=== PATIENT | male | born 1960 | race Two or more races ===

== ENCOUNTER 2017-03-21 16:34 | Emergency (ER) | payer SELFPAY ==
[~2017-03-21] VITALS: Ht 185.4 cm; Wt 104.3 kg
[~2017-03-21 16:34] MED LIST: ACET325T9 PO
[2017-03-21 17:15] VITALS: BP 162/98
--- NOTE | 2017-03-21 17:39 | PHYS DOC ---
Past Medical History Past Medical History: No Pertinent History Past Surgical History: No Surgical History Alcohol Use: Occasionally Drug Use: None Adult General Chief Complaint Chief Complaint: FOOT INJURY PAIN HPI HPI Patient is a 56 year old male who presents with mild left lateral foot pain that began 3 days ago after he stepped on something at work. Patient states the pain is worse on weight-bearing. Describes the pain as throbbing. Review of Systems Review of Systems Constitutional: Denies fever or chills [] : Denies dysuria or hematuria [] Musculoskeletal: mild left lateral foot pain Integument: Denies rash or skin lesions [] Neurologic: Denies headache, focal weakness or sensory changes [] Allergies Allergies Allergies Coded Allergies Type Severity Reaction Last Updated Verified No Known Drug Allergies 08/11/14 No Physical Exam Physical Exam Constitutional: Well developed, well nourished, no acute distress, non-toxic appearance. [] Skin: Warm, dry, no erythema, no rash. [] Back: No tenderness, no CVA tenderness. [] Extremities: Left lateral foot with mild swelling. Tenderness on palpation of the base of the fifth metatarsal of the left foot. Full range of motion to the left foot and toes. +2 left pedal pulse. Cap refill less than 2 seconds the left toes. Sensation intact to the left foot. No pain or tenderness or navicular bone of the left foot. Neurologic: Alert and oriented X 3, normal motor function, normal sensory function, no focal deficits noted. [] Psychologic: Affect normal, judgement normal, mood normal. [] Current Patient Data Vital Signs Vital Signs Date Time Temp Pulse Resp B/P (MAP) Pulse Ox O2 Delivery O2 Flow Rate FiO2 03/21/17 17:15 98.0 82 20 98 Room Air 98.0 EKG EKG [] Radiology/Procedures Radiology/Procedures []Left foot x-rays interpreted by Dr. Tadeo Course & Med Decision Making Course & Med Decision Making Pertinent Labs and Imaging studies reviewed. (See chart for details) Patient is in the ED with complaints of left lateral foot pain that began 3 days ago, no known injury except stepping on something at work. Left foot x- rays interpreted by Dr. Tadeo were negative for any acute findings. Patient was placed in an orthopedic shoe by the ED RN, neurovascular exam is normal, ice elevation encouraged. Naproxen for pain. Follow-up with orthopedic doctor in one week. Dragon Disclaimer Dragon Disclaimer This electronic medical record was generated, in whole or in part, using a voice recognition dictation system. Departure Departure Impression: Primary Impression: Sprain of left foot Disposition: HOME, SELF-CARE Condition: STABLE Referrals: CARLOZ ZACARIAS MD (PCP) HELGA QUILES II, MD Follow-up with the orthopedic doctor the provided doctor in one week if pain continues Patient Instructions: Foot Sprain-Brief Additional Instructions: You were seen for left foot sprain. Ice and elevate the extremity. Wear the orthopedic shoe provided as tolerated. Follow-up with the provided orthopedic doctor in 1-2 weeks if pain continues Scripts Naproxen (NAPROXEN) 500 Mg Tablet.dr 1 TAB PO BID, #60 TAB 2 Refills Prov: MAYCOL AMEZQUITA APRN 03/21/17 Problem Qualifiers Primary Impression: Sprain of left foot Encounter type: initial encounter Qualified Codes: S93.602A - Unspecified sprain of left foot, initial encounter MAYCOL AMEZQUITA [employer] Mar 21, 2017 17:39
[2017-03-21] MEDS ORDERED: NAPR500T8 PO (17:51)
--- NOTE | 2017-03-22 08:23 | RAD ---
Indication: Pain, swelling, and lump laterally. Technique: 3 views of the left foot are submitted for review. No comparison is available. Findings: There is no fracture or dislocation. 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 There is minimal soft tissue swelling greater laterally and in the plantar soft tissues. Impression: Negative for fracture.
== END 2017-03-21 17:57 | disposition home or self-care (01) ==
LOC: ER 16:34
DX: S93.602A Unspecified sprain of left foot, initial encounter (principal); W22.8XXA Striking against or struck by other objects, initial encounter; Y93.89 Activity, other specified; Y92.69 Other specified industrial and construction area as the place of occurrence of the external cause; Y99.8 Other external cause status
CPT/HCPCS: 73630; 99284

== ENCOUNTER 2018-05-17 11:49 | Emergency (ER) | payer OTHER ==
[~2018-05-17] VITALS: Ht 190.5 cm; Wt 104.3 kg
[~2018-05-17 11:49] MED LIST changes: +NAPR500T8 PO
[2018-05-17 12:02] VITALS: BP 149/100
[2018-05-17] MEDS ORDERED: KETOROLAC 60 MG/2 ML INJ. IM ONE (12:15)
[2018-05-17] MEDS ORDERED: HYDROcodone/APAP 5/325MG 1 TAB TABLET PO ONE (12:15)
[2018-05-17] MEDS ORDERED: HYDR-971 PO (12:20)
--- NOTE | 2018-05-17 12:38 | PHYS DOC ---
Past Medical History Past Medical History: No Pertinent History Past Surgical History: No Surgical History Alcohol Use: Occasionally Drug Use: None Adult General Chief Complaint Chief Complaint: RIB PAIN HPI HPI Patient is a 57 year old male who is presenting with right lower rib and right upper abdominal pain. 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 And again it did start after a b blunt trauma as noted above Review of Systems Review of Systems Constitutional: Denies fever or chills [] Eyes: Denies change in visual acuity, redness, or eye pain [] HENT: Denies nasal congestion or sore throat [] Respiratory: Denies cough or shortness of breath [] Musculoskeletal: [] Integument: Denies rash or skin lesions [] Neurologic: Denies headache, focal weakness or sensory changes [] All other systems were reviewed and found to be within normal limits, except as documented in this note. Current Medications Current Medications Current Medications Medications (Trade) Dose Ordered Sig/Krissy Start Time Stop Time Status Last Admin Dose Admin Acetaminophen/ Hydrocodone Bitart (Lortab 5/325) 2 tab 1X ONCE 05/17/18 12:15 05/17/18 12:16 DC 05/17/18 12:30 2 TAB Ketorolac Tromethamine (Toradol Im) 30 mg 1X ONCE 05/17/18 12:15 05/17/18 12:16 DC 05/17/18 12:30 30 MG Allergies Allergies Allergies Coded Allergies Type Severity Reaction Last Updated Verified No Known Drug Allergies 08/11/14 No Physical Exam Physical Exam Constitutional: Well developed, well nourished, no acute distress, non-toxic appearance. [] HENT: Normocephalic, atraumatic, bilateral external ears normal, oropharynx moist, no oral exudates, nose normal. [] Eyes: PERRLA, EOMI, conjunctiva normal, no discharge. [] Neck: Normal range of motion, no tenderness, supple, no stridor. [] Cardiovascular:Heart rate regular rhythm, no murmur [] Lungs & Thorax: Bilateral breath sounds clear to auscultation []There is chest wall tenderness palpation on the inferior costal margin the right chest no obvious trauma was seen. There is also some right upper quadrant tenderness that reproduces his pain. Abdomen: Bowel sounds normal, soft, , no masses, no pulsatile masses. [] Skin: Warm, dry, no erythema, no rash. [] Back: No tenderness, no CVA tenderness. [] Extremities: No tenderness, no cyanosis, no clubbing, ROM intact, no edema. [] Neurologic: Alert and oriented X 3, normal motor function, normal sensory function, no focal deficits noted. [] Psychologic: Affect normal, judgement normal, mood normal. [] Current Patient Data Vital Signs Vital Signs Date Time Temp Pulse Resp B/P (MAP) Pulse Ox O2 Delivery O2 Flow Rate FiO2 05/17/18 12:02 97.2 89 20 149/100 (116) 97 Room Air 97.2 EKG EKG [] Radiology/Procedures Radiology/Procedures [] Impressions: Chest x-ray interpreted by me shows poor inspiration but no pneumothorax no rib injury fairly normal overall Course & Med Decision Making Course & Med Decision Making Pertinent Labs and Imaging studies reviewed. (See chart for details) []57-year-old male with no past medical history presenting with a blunt trauma 3 weeks ago with continued pain over the right lower chest wall and right upper quadrant area. It is likely musculoskeletal in nature. X-ray showed no definite rib fracture. I did give some thought to a possible encapsulated liver hematoma etc. I discussed with him about the lab work and a CT scan today to rule out anything like that L. He said he has to leave because he has to get a ride and he has things to do and he cannot stay for that testing. Did talk with him about the fact that there is a low chance of this and that even if it was present it would likely be observed due to timeframe. He preferred to take some pain medication and see how he feels. rx norco given, precautionson this med were reviewed no driving or worknig while on it. Patient aware of the elevation in blood pressure and need for follow-up within 1 month Dragon Disclaimer Dragon Disclaimer This electronic medical record was generated, in whole or in part, using a voice recognition dictation system. Departure Departure Impression: Primary Impression: Rib pain Additional Impression: Elevated blood pressure reading Disposition: 01 HOME, SELF-CARE Condition: STABLE Patient Instructions: Rib Contusion Scripts Hydrocodone/Apap 5-325 (NORCO 5-325 TABLET) 1 Each Tablet 1-2 EACH PO PRN Q6HRS PRN for PAIN, #15 as needed for pain Prov: WES JACOBSEN MD 05/17/18 Problem Qualifiers WES JACOBSEN MD May 17, 2018 12:38
--- NOTE | 2018-05-17 13:26 | RAD ---
Chest, PA and Lateral: Technique: PA and lateral views of the chest were obtained. History: Chest pain. Comparison: 04/24/2014. Findings: The heart and pulmonary vasculature appear within normal limits. Mild prominent appearing bilateral interstitial lung markings similar to prior exam.. The pleural margins are clear. Impression: No acute chest process is seen. Electronically signed by: Vance Larsen MD (05/17/2018 1:22 PM) [id number]
== END 2018-05-17 12:34 | disposition home or self-care (01) ==
LOC: ER 11:49
DX: R07.81 Pleurodynia (principal); R10.11 Right upper quadrant pain; R03.0 Elevated blood-pressure reading, without diagnosis of hypertension
CPT/HCPCS: 71046; 96372; 99284; J1885

== ENCOUNTER 2018-10-15 11:09 | Emergency (ER) | payer OTHER ==
[~2018-10-15] VITALS: Ht 188 cm; Wt 113.9 kg
[~2018-10-15 11:09] MED LIST changes: +HYDR-3164 PO
[2018-10-15 11:10] VITALS: BP 145/86
[2018-10-15] MEDS ORDERED: IBUPROFEN 400 MG TABLET. PO ONE (11:30)
--- NOTE | 2018-10-15 11:30 | PHYS DOC ---
Past Medical History Past Medical History: No Pertinent History Past Surgical History: Other Additional Past Surgical Histo: wart on right hand Alcohol Use: Occasionally Drug Use: None Adult General Chief Complaint Chief Complaint: HAND PROBLEM HPI HPI Patient is a 58 year old male with 1 month or longer right hand pain he has a wart they are freezing off slowly at the clinic pain is increasing no fever it did bleed 2 weeks ago it stopped. He would like a note for work right hand. Current Medications Current Medications Current Medications Medications (Trade) Dose Ordered Sig/Krissy Start Time Stop Time Status Last Admin Dose Admin Ibuprofen (Motrin) 400 mg 1X ONCE 10/15/18 11:30 10/15/18 11:31 Allergies Allergies Allergies Coded Allergies Type Severity Reaction Last Updated Verified No Known Drug Allergies 08/11/14 No Physical Exam Physical Exam Constitutional: Well developed, well nourished, no acute distress, non-toxic appearance. [] HENT: Normocephalic, atraumatic, bilateral external ears normal, oropharynx moist, no oral exudates, nose normal. [] Eyes: PERRLA, EOMI, conjunctiva normal, no discharge. [] Pulmonary: Normal respiratory effort no increased work of breathing no obvious chest wall trauma Abdomen: Bowel sounds normal, soft, no tenderness, no masses, no pulsatile masses. [] Skin: See below Back: No tenderness, no CVA tenderness. [] Extremitie there is a wart that appears to be slowly healing on the dorsum of the hand no cellulitis noted pulse present Neurologic: Alert and oriented X 3, normal motor function, normal sensory function, no focal deficits noted. [] Psychologic: Affect normal, judgement normal, mood normal. [] Current Patient Data Vital Signs Vital Signs Date Time Temp Pulse Resp B/P (MAP) Pulse Ox O2 Delivery O2 Flow Rate FiO2 10/15/18 11:10 97.7 78 16 145/86 (105) 95 Room Air 97.7 EKG EKG [] Radiology/Procedures Radiology/Procedures [] Course & Med Decision Making Course & Med Decision Making Pertinent Labs and Imaging studies reviewed. (See chart for details) Dorsum of the hand wart. Patient tells me was artery biopsy he is having it treated I suspect it is slowly dying and causing some discomfort no signs of infection Motrin given the area was wrapped with a dry Kerlix patient was reassured Dragon Disclaimer Dragon Disclaimer This electronic medical record was generated, in whole or in part, using a voice recognition dictation system. Departure Departure Impression: Primary Impression: Praveena Additional Impression: Elevated blood pressure reading Disposition: HOME, SELF-CARE Condition: STABLE Patient Instructions: Feroz Additional Instructions: get bp checked one month Problem Qualifiers WES JACOBSEN MD Oct 15, 2018 11:30
== END 2018-10-15 11:48 | disposition home or self-care (01) ==
LOC: ER 11:09
DX: R03.0 Elevated blood-pressure reading, without diagnosis of hypertension (principal); B07.8 Other viral warts; M79.641 Pain in right hand
CPT/HCPCS: 99282

== ENCOUNTER 2019-09-20 09:46 | Emergency (ER) | payer OTHER ==
[~2019-09-20] VITALS: Ht 188 cm; Wt 115.0 kg
[2019-09-20 10:08] VITALS: BP 134/87
[2019-09-20] MEDS ORDERED: IBUPROFEN 200 MG TABLET. PO ONE (10:45)
[2019-09-20] MEDS ORDERED: ACETAMINOPHEN 500 MG TABLET PO ONE (10:45)
[2019-09-20] MEDS ORDERED: BENZONATATE 100 MG CAPSULE. PO ONE (10:45)
--- NOTE | 2019-09-20 11:15 | RAD ---
Chest, PA and Lateral: Technique: PA and lateral views of the chest were obtained. History: Cough, weakness. Comparison: 05/17/2018. Findings: The heart and pulmonary vasculature appear within normal limits. The lungs are clear. The pleural margins are clear. Impression: No acute chest process is seen. Electronically signed by: Vance Larsen MD (09/20/2019 11:13 AM) [id number]
--- NOTE | 2019-09-20 11:21 | PHYS DOC ---
Past Medical History Past Medical History: Hypertension (MAYCOL AMEZQUITA APRN) Past Surgical History: Other Additional Past Surgical Histo: wart on right hand (MAYCOL AMEZQUITA APRN) Smoking Status: Never Smoker Alcohol Use: Occasionally Drug Use: None (MAYCOL AMEZQUITA APRN) Adult General Chief Complaint Chief Complaint: FLU SYMPTOM HPI HPI Patient is a 58 year old female with history of hypertension who presents to the ED today with sore throat, cough and body aches and subjective fevers, symptoms began on Thursday which is 4 days ago. Patient reports being around a family member who was diagnosed with influenza B (MAYCOL AMEZQUITA APRN) Review of Systems Review of Systems Constitutional: Reports body aches, fevers Eyes: Denies change in visual acuity, redness, or eye pain [] HENT: Reports sore throat Denies nasal congestion Respiratory: Reports cough denies shortness of breath [] Cardiovascular: No additional information not addressed in HPI [] GI: Denies abdominal pain, nausea, vomiting, bloody stools or diarrhea [] : Denies dysuria or hematuria [] Musculoskeletal: Denies back pain or joint pain [] Integument: Denies rash or skin lesions [] Neurologic: Denies headache, focal weakness or sensory changes [] All other systems were reviewed and found to be within normal limits, except as documented in this note. (MAYCOL AMEZQUITA APRN) Current Medications Current Medications Current Medications Medications (Trade) Dose Ordered Sig/Krissy Start Time Stop Time Status Last Admin Dose Admin Acetaminophen (Tylenol) 1,000 mg 1X ONCE 09/20/19 10:45 09/20/19 10:46 DC 09/20/19 11:01 1,000 MG Benzonatate (Tessalon Perle) 100 mg 1X ONCE 09/20/19 10:45 09/20/19 10:46 DC 09/20/19 11:00 100 MG Ibuprofen (Motrin) 600 mg 1X ONCE 09/20/19 10:45 09/20/19 10:46 DC 09/20/19 11:01 600 MG (PELON MC DO) Allergies Allergies Allergies Coded Allergies Type Severity Reaction Last Updated Verified No Known Drug Allergies 08/11/14 No (PELON MC DO) Physical Exam Physical Exam Constitutional: Well developed, well nourished, no acute distress, non-toxic a ppearance. [] HENT: Normocephalic, atraumatic, bilateral external ears normal, oropharynx moist, no oral exudates, nose normal. [] Eyes: PERRLA, EOMI, conjunctiva normal, no discharge. [] Neck: Normal range of motion, no tenderness, supple, no stridor. [] Cardiovascular:Heart rate regular rhythm, no murmur [] Lungs & Thorax: Bilateral breath sounds clear to auscultation [] Abdomen: Bowel sounds normal, soft, no tenderness, no masses, no pulsatile masses. [] Skin: Warm, dry, no erythema, no rash. [] Back: No tenderness, no CVA tenderness. [] Extremities: No tenderness, no cyanosis, no clubbing, ROM intact, no edema. [] Neurologic: Alert and oriented X 3, normal motor function, normal sensory function, no focal deficits noted. [] Psychologic: Affect normal, judgement normal, mood normal. [] (MAYCOL AMEZQUITA APRN) Current Patient Data Vital Signs Vital Signs Date Time Temp Pulse Resp B/P (MAP) Pulse Ox O2 Delivery O2 Flow Rate FiO2 09/20/19 10:08 100.6 105 20 134/87 (103) 94 Room Air 100.6 (PELON MC DO) Lab Values Laboratory Tests Test 09/20/19 10:29 Influenza Type A Antigen Positive (NEGATIVE) Influenza Type B Antigen Negative (NEGATIVE) (PELON MC DO) Lab Values Laboratory Tests Test 09/20/19 10:29 Influenza Type A Antigen Positive (NEGATIVE) Influenza Type B Antigen Negative (NEGATIVE) (MAYCOL AMEZQUITA APRN) EKG EKG [] (MAYCOL AMEZQUITA APRN) Radiology/Procedures Radiology/Procedures []PROCEDURE: CHEST PA & LATERAL Chest, PA and Lateral: Technique: PA and lateral views of the chest were obtained. History: Cough, weakness. Comparison: 05/17/2018. Findings: The heart and pulmonary vasculature appear within normal limits. The lungs are clear. The pleural margins are clear. Impression: No acute chest process is seen. Electronically signed by: Vance Larsen MD (09/20/2019 11:13 AM) [id number] DICTATED and SIGNED BY: VANCE LARSEN MD DATE: 09/20/19 1113 (MAYCOL AMEZQUITA APRN) Course & Med Decision Making Course & Med Decision Making Pertinent Labs and Imaging studies reviewed. (See chart for details) This is a 58-year-old male patient presenting to the ED today with fever and sore throat and body aches and a cough for 4 days. Has been around somebody with influenza B. Temperature on arrival is 100.6. Given Tylenol and Motrin. Chest x-ray is negative as interpreted by radiologist. Positive for influenza A. Supportive care measures recommended. F/u with PCP in 1 week (MAYCOL AMEZQUITA APRN) Dragon Disclaimer Dragon Disclaimer This electronic medical record was generated, in whole or in part, using a voice recognition dictation system. (MAYCOL AMEZQUITA APRN) Departure Departure Impression: Primary Impression: Fever Additional Impressions: Influenza A Cough Disposition: HOME, SELF-CARE Condition: STABLE Referrals: CARLOZ ZACARIAS MD (PCP) follow up in 1 week Patient Instructions: Cough, Adult, [id number], Fever, Adult, Influenza A (H1N1) Additional Instructions: You tested positive for influenza, this is a viral illness, it will run its own course. Please take Tylenol every 4 hours and Motrin every 6 hours. Please rest, push fluids, maintain good hygiene. Follow-up with your doctor in 1-2 weeks. Attending Signature Attending Signature I have reviewed the PA/SOAP TENDER's note and plan of care. I was available for consultation as needed during the patient's visit in the emergency department. I agree with the clinical impression, plan, and disposition. (PELON MC DO) Problem Qualifiers Primary Impression: Fever Fever type: unspecified Qualified Codes: R50.9 - Fever, unspecified MAYCOL AMEZQUITA APRN Sep 20, 2019 11:21 PELON MC DO Sep 21, 2019 21:35
[2019-09-20 11:24] LABS: INFLUENZA A PATIENT POSITIVE (NEGATIVE)
[2019-09-20 11:26] LABS: INFLUENZA B PATIENT NEGATIVE (NEGATIVE)
== END 2019-09-20 11:37 | disposition home or self-care (01) ==
LOC: ER 09:46
DX: J10.1 Influenza due to other identified influenza virus with other respiratory manifestations (principal); R05 Cough; I10 Essential (primary) hypertension; Z98.890 Other specified postprocedural states; Z79.899 Other long term (current) drug therapy
CPT/HCPCS: 71046; 87804; 99284

== ENCOUNTER 2020-08-09 10:32 | Emergency (ER) | payer OTHER ==
[~2020-08-09] VITALS: Ht 188 cm; Wt 111.8 kg
[2020-08-09 10:45] VITALS: BP 133/88
[2020-08-09] MEDS ORDERED: HYDR-2759 PO (11:20)
[2020-08-09] MEDS ORDERED: CYCL5TAB PO (11:20)
--- NOTE | 2020-08-09 11:20 | ED.ADGEN ---
Past Medical History Past Medical History: GERD, Hypertension, Other Additional Past Medical Histor: LIVER PROBLEMS Past Surgical History: No Surgical History, Other Additional Past Surgical Histo: wart on right hand Smoking Status: Never Smoker Alcohol Use: Sober Drug Use: None General Adult EDM: Chief Complaint: BACK PAIN - NO INJURY HPI: HPI: Patient is a 59 male who arrives ambulatory to the emergency department complaining of right-sided low back pain. Patient reports he was changing a tire on Thursday when his shoe string was caught in between the rim of the tire and when he leaned back he noticed that she screen was caught on the tire and he lost his balance and fell back and landed on the right side of his back. Patient reports since that time he has had episodes where he spasms in the lumbar musculature at the right side of his back. Patient states when he leans to his right in the seated position his pain is alleviated however he has significant pain whenever he tries to walk or move. The patient denies any midline back pain. He further denies any saddle anesthesia or change in his bowel/bladder habits. He further denies any lower extremity weakness or radiation of his pain. He is awake, alert and uncomfortable.. Review of Systems: Review of Systems: Constitutional: Denies fever or chills. [] Eyes: Denies change in visual acuity. [] HENT: Denies nasal congestion or sore throat. [] Respiratory: Denies cough or shortness of breath. [] Cardiovascular: Denies chest pain or edema. [] GI: Denies abdominal pain, nausea, vomiting, bloody stools or diarrhea. [] : Denies dysuria. [] Musculoskeletal: Reports lumbar back pain. Denies joint pain. [] Integument: Denies rash. [] Neurologic: Denies headache, focal weakness or sensory changes. [] Endocrine: Denies polyuria or polydipsia. [] Lymphatic: Denies swollen glands. [] Psychiatric: Denies depression or anxiety. [] Family History: Family History: Noncontributory Allergies: Allergies: Allergies Coded Allergies Type Severity Reaction Last Updated Verified No Known Drug Allergies 08/11/14 No Physical Exam: PE: Constitutional: Well developed, well nourished, no acute distress, non-toxic appearance. [] HENT: Normocephalic, atraumatic, bilateral external ears normal, oropharynx moist, no oral exudates, nose normal. [] Eyes: PERRLA, EOMI, conjunctiva normal, no discharge. [] Neck: Normal range of motion, no tenderness, supple, no stridor. [] Cardiovascular:Heart rate regular rhythm, no murmur [] Lungs & Thorax: Bilateral breath sounds clear to auscultation [] Abdomen: Bowel sounds normal, soft, no tenderness, no masses, no pulsatile masses. [] Skin: Warm, dry, no erythema, no rash. [] Back: Patient has tenderness palpation in the region of the lumbar musculature at the right side of his back. He also appears to tenderness at the sciatic notch. There is no midline tenderness present. There is no CVA tenderness present. Extremities: No tenderness, no cyanosis, no clubbing, ROM intact, no edema. [] Neurologic: Alert and oriented X 3, normal motor function, normal sensory function, no focal deficits noted. [] Psychologic: Affect normal, judgement normal, mood normal. [] Current Patient Data: Vital Signs: Vital Signs Date Time Temp Pulse Resp B/P (MAP) Pulse Ox O2 Delivery O2 Flow Rate FiO2 08/09/20 10:45 98.1 76 20 133/88 (103) 97 Room Air 98.1 EKG: EKG: [] Heart Score: Risk Factors: Risk Factors: DM, Current or recent (<one month) smoker, HTN, HLP, family history of CAD, obesity. Risk Scores: Score 0 - 3: 2.5% MACE over next 6 weeks - Discharge Home Score 4 - 6: 20.3% MACE over next 6 weeks - Admit for Clinical Observation Score 7 - 10: 72.7% MACE over next 6 weeks - Early Invasive Strategies Radiology/Procedures: Radiology/Procedures: [] Course & Med Decision Making: Course & Med Decision Making Pertinent Labs and Imaging studies reviewed. (See chart for details) [] Dragon Disclaimer: Emily Disclaimer: This electronic medical record was generated, in whole or in part, using a voice recognition dictation system. Departure Departure Impression: Primary Impression: Lumbar contusion Disposition: 01 DC HOME SELF CARE/HOMELESS Condition: STABLE Referrals: CARLOZ ZACARIAS MD (PCP) Patient Instructions: Back Pain, Adult, Contusion Scripts Cyclobenzaprine Hcl (CYCLOBENZAPRINE HCL) 5 Mg Tablet 1 TAB PO TID for 7 Days, #21 TAB Prov: JSOEPH MARIN DO 08/09/20 Hydrocodone/Acetaminophen (Hydrocodone-Acetamin 5-325 mg) 1 Each Tablet 1 EACH PO PRN Q6HRS PRN for PAIN for 3 Days, #12 TAB Prov: JOSEPH MARIN DO 08/09/20 JOSEPH MARIN DO Aug 09, 2020 11:20
== END 2020-08-09 11:28 | disposition home or self-care (01) ==
LOC: ER 10:32
DX: S30.0XXA Contusion of lower back and pelvis, initial encounter (principal); K21.9 Gastro-esophageal reflux disease without esophagitis; I10 Essential (primary) hypertension; Z98.890 Other specified postprocedural states; W18.39XA Other fall on same level, initial encounter; Y93.89 Activity, other specified; Y92.89 Other specified places as the place of occurrence of the external cause; Y99.8 Other external cause status
CPT/HCPCS: 99284

== ENCOUNTER 2020-12-06 18:30 | Emergency (ER) | payer OTHER ==
[~2020-12-06] VITALS: Ht 188 cm; Wt 115.9 kg
[~2020-12-06 18:30] MED LIST changes: +CYCL5TAB PO; +HYDR-2759 PO
[2020-12-06 19:37] LABS: BASO % 1 % (0-3); EOS # 0.2 x10^3/uL (0.0-0.7); EOS % 5 % (0-3); LYMPH # 1.1 x10^3/uL (1.0-4.8); LYMPH % 30 % (24-48); MEAN CORPUSCULAR HEMOGLOBIN 29 pg (25-35); MEAN CORPUSCULAR HGB CONC 34 g/dL (31-37); MEAN CORPUSCULAR VOLUME 84 fL (79-100); MONO # 0.5 x10^3/uL (0.0-1.1); MONO % 13 % (0-9); NEUT # 1.9 x10^3/uL (1.8-7.7); NEUT % 51 % (31-73); PLATELET COUNT 146 x10^3/uL (140-400); RED BLOOD COUNT 5.22 x10^6/uL (4.30-5.70); RED CELL DISTRIBUTION WIDTH 14.1 % (11.5-14.5); WHITE BLOOD COUNT 3.8 x10^3/uL (4.0-11.0)
[2020-12-06 19:40] LABS: BILIRUBIN,URINE SMALL (NEG); CLARITY,URINE CLEAR; COLOR,URINE AMBER; NITRITE,URINE NEGATIVE (NEG); PROTEIN,URINE NEGATIVE (NEG-TRACE)
--- NOTE | 2020-12-06 19:44 | PHYS DOC ---
Past Medical History Past Medical History: GERD, Hypertension, Other Additional Past Medical Histor: LIVER PROBLEMS Past Surgical History: Other Additional Past Surgical Histo: wart on right hand Smoking Status: Never Smoker Alcohol Use: Sober Drug Use: None General Adult EDM: Chief Complaint: MULTIPLE COMPLAINTS HPI: HPI: Patient is a 60 year old male with history of hypertension who presents today with multiple complaints. Patient states he got Pfizer second dose Covid vaccine this week on Thursday, he states on Thursday he developed a fever. He states he feels constipated. Last bowel movement was today. He states he has poor appetite and fatigue. He states he typically eats like a horse but has not had a chance to eat much food since he got Covid vaccine Review of Systems: Review of Systems: Constitutional: Reports fever. Reports fatigue. Denies fever or chills. [] Eyes: Denies change in visual acuity. [] HENT: Denies nasal congestion or sore throat. [] Respiratory: Denies cough or shortness of breath. [] Cardiovascular: Denies chest pain or edema. [] GI: Reports constipation. Denies abdominal pain, nausea, vomiting, bloody stools or diarrhea. [] : Denies dysuria. [] Musculoskeletal: Denies back pain or joint pain. [] Integument: Denies rash. [] Neurologic: Denies headache, focal weakness or sensory changes. [] Psychiatric: Denies depression or anxiety. [] Heart Score: C/O Chest Pain: N/A Risk Factors: Risk Factors: DM, Current or recent (<one month) smoker, HTN, HLP, family hist ory of CAD, obesity. Risk Scores: Score 0 - 3: 2.5% MACE over next 6 weeks - Discharge Home Score 4 - 6: 20.3% MACE over next 6 weeks - Admit for Clinical Observation Score 7 - 10: 72.7% MACE over next 6 weeks - Early Invasive Strategies Allergies: Allergies: Allergies Coded Allergies Type Severity Reaction Last Updated Verified No Known Drug Allergies 08/11/14 No Physical Exam: PE: Constitutional: Well developed, well nourished, no acute distress, non-toxic appearance. [] HENT: Normocephalic, atraumatic, bilateral external ears normal, oropharynx moist, no oral exudates, nose normal. [] Eyes: PERRLA, EOMI, conjunctiva normal, no discharge. [] Neck: Normal range of motion, no tenderness, supple, no stridor. [] Cardiovascular:Heart rate regular rhythm, no murmur [] Lungs & Thorax: Bilateral breath sounds clear to auscultation [] Abdomen: Bowel sounds normal, soft, no tenderness, no masses, no pulsatile masses. [] Skin: Warm, dry, no erythema, no rash. [] Back: No tenderness, no CVA tenderness. [] Extremities: No tenderness, no cyanosis, no clubbing, ROM intact, no edema. [] Neurologic: Alert and oriented X 3, normal motor function, normal sensory function, no focal deficits noted. [] Psychologic: Affect normal, judgement normal, mood normal. [] Current Patient Data: Labs: Laboratory Tests Test 12/06/20 19:33 White Blood Count 3.8 x10^3/uL (4.0-11.0) L Red Blood Count 5.22 x10^6/uL (4.30-5.70) Hemoglobin 15.0 g/dL (13.0-17.5) Hematocrit 44.0 % (39.0-53.0) Mean Corpuscular Volume 84 fL (79-100) Mean Corpuscular Hemoglobin 29 pg (25-35) Mean Corpuscular Hemoglobin Concent 34 g/dL (31-37) Red Cell Distribution Width 14.1 % (11.5-14.5) Platelet Count 146 x10^3/uL (140-400) Neutrophils (%) (Auto) 51 % (31-73) Lymphocytes (%) (Auto) 30 % (24-48) Monocytes (%) (Auto) 13 % (0-9) H Eosinophils (%) (Auto) 5 % (0-3) H Basophils (%) (Auto) 1 % (0-3) Neutrophils # (Auto) 1.9 x10^3/uL (1.8-7.7) Lymphocytes # (Auto) 1.1 x10^3/uL (1.0-4.8) Monocytes # (Auto) 0.5 x10^3/uL (0.0-1.1) Eosinophils # (Auto) 0.2 x10^3/uL (0.0-0.7) Basophils # (Auto) 0.0 x10^3/uL (0.0-0.2) Laboratory Tests 12/06/20 19:33 Vital Signs: Vital Signs Date Time Temp Pulse Resp B/P (MAP) Pulse Ox O2 Delivery O2 Flow Rate FiO2 12/06/20 18:57 97.6 90 20 135/79 (97) 98 Room Air 97.6 EKG: EK interpreted by Dr. Cooley sinus rhythm heart rate 89 no STEMI [] Radiology/Procedures: Radiology/Procedures: []PROCEDURE: ACUTE ABDOMEN SERIES EXAMINATION: XR ABDOMEN COMP ACUTE CLINICAL HISTORY: Constipation, fever EXAM DATE/TIME: 12/06/2020 7:45 PM COMPARISON: Chest radiographs 09/20/2019, acute abdominal series 05/03/2014 FINDINGS: Lines, Tubes, and Devices: None. Cardiomediastinal Silhouette: Normal heart size. Lungs and Pleura: Mild left basilar subsegmental atelectasis and/or scarring. No definite pleural effusion. No pneumothorax. Bones and Soft Tissues: Thoracolumbar degenerative changes. Abdomen: Nonspecific bowel gas pattern with overall paucity of visualized bowel gas. No evidence of excessive colonic stool retention. No evidence of pneumoperitoneum. No pathologic abdominal calcifications visualized. IMPRESSION: Nonspecific bowel gas pattern is described without evidence of excessive colonic stool retention. Mild left basilar subsegmental atelectasis and/or scarring, similar to prior study. Electronically signed by: Jose D Silva DO (12/06/2020 7:53 PM) [facility] DICTATED and SIGNED BY: JOSE D SILVA DO DATE: 12/06/20 [id number] 0 Course & Med Decision Making: Course & Med Decision Making Pertinent Labs and Imaging studies reviewed. (See chart for details) This is a 60-year-old male patient presenting to the ED today complaining of fever, body aches, constipation, symptoms began after having Pfizer second dose Covid vaccine on Thursday this week. Patient is afebrile in the ED, EKG is negative, CBC with a WBC of 3.8, CMP with bilirubin of 2.0, AST of 39, ALT of 82, patient has no abdominal pain. Acute abdominal series is negative for any acute findings Discharge home. Follow-up with PCP in 1 week. Supportive care measures recommended Emily Disclaimer: Emily Disclaimer: This electronic medical record was generated, in whole or in part, using a voice recognition dictation system. Departure Departure Impression: Primary Impression: Fever Qualified Codes: R50.9 - Fever, unspecified Disposition: 01 HOME / SELF CARE / HOMELESS Condition: STABLE Referrals: CARLOZ ZACARIAS MD (PCP) Follow-up next week Patient Instructions: Fever, Adult, [id number] Additional Instructions: You were evaluated in the emergency room, you could be suffering from some of the side effects of covid vaccine. Push fluids, rest, maintain good hand hygie ne. These symptoms will typically run their own course and be gone in a few days MAYCOL AMEZQUITA CONFERENCE SERVICES DIRECTOR December 06, 2020 19:44
--- NOTE | 2020-12-06 19:51 | EKG ---
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
[2020-12-06 19:54] LABS: CALCIUM 8.4 mg/dL (8.5-10.1); CREATININE 0.7 mg/dL (0.7-1.3); GFR 115.4; POTASSIUM 3.4 mmol/L (3.5-5.1)
--- NOTE | 2020-12-06 19:55 | RAD ---
EXAMINATION: XR ABDOMEN COMP ACUTE CLINICAL HISTORY: Constipation, fever EXAM DATE/TIME: 12/06/2020 7:45 PM COMPARISON: Chest radiographs 09/20/2019, acute abdominal series 05/03/2014 FINDINGS: Lines, Tubes, and Devices: None. Cardiomediastinal Silhouette: Normal heart size. Lungs and Pleura: Mild left basilar subsegmental atelectasis and/or scarring. No definite pleural eff usion. No pneumothorax. Bones and Soft Tissues: Thoracolumbar degenerative changes. Abdomen: Nonspecific bowel gas pattern with overall paucity of visualized bowel gas. No evidence of e xcessive colonic stool retention. No evidence of pneumoperitoneum. No pathologic abdominal calcificat ions visualized. IMPRESSION: Nonspecific bowel gas pattern is described without evidence of excessive colonic stool retention. Mild left basilar subsegmental atelectasis and/or scarring, similar to prior study. Electronically signed by: Jose D Euceda DO (12/06/2020 7:53 PM) [facility]
[2020-12-06 20:00] LABS: ALBUMIN 3.7 g/dL (3.4-5.0); ALBUMIN/GLOBULIN RATIO 1.1 (1.0-1.7); TOTAL PROTEIN 7.2 g/dL (6.4-8.2)
[2020-12-06 20:04] LABS: BACTERIA,URINE 0 /HPF (0-FEW); WBC,URINE 0 /HPF (0-4)
[2020-12-06 21:33] VITALS: BP 160/98
== END 2020-12-06 21:44 | disposition home or self-care (01) ==
LOC: ER 18:30
DX: R50.9 Fever, unspecified (principal); K59.00 Constipation, unspecified; R53.83 Other fatigue; K21.9 Gastro-esophageal reflux disease without esophagitis; I10 Essential (primary) hypertension
CPT/HCPCS: 36415; 74022; 80053; 81001; 83735; 83880; 84484; 85025; 93005; 99285-25

== ENCOUNTER 2021-04-22 11:20 | Emergency (ER) | payer OTHER ==
[~2021-04-22] VITALS: Ht 188 cm; Wt 107.1 kg
[2021-04-22] MEDS ORDERED: ONDANSETRON PF 4 MG/2 ML VIAL. IVP ONE (13:15)
[2021-04-22] MEDS ORDERED: IV RINGERS,LACTATED 500ML 1,000 ML IV ONE (13:15)
--- NOTE | 2021-04-22 13:59 | PHYS DOC ---
Past Medical History Past Medical History: GERD, Hypertension, Other Additional Past Medical Histor: LIVER PROBLEMS Past Surgical History: Other Additional Past Surgical Histo: wart on right hand Smoking Status: Never Smoker Alcohol Use: Sober Drug Use: None General Adult EDM: Chief Complaint: DIZZY/LIGHT HEADED HPI: HPI: Patient is a 60 year old male with history of diabetes who presents with nausea, vomiting, dizziness, upper abdominal discomfort and hyperglycemia. Has had symptoms since last week and his PCP is been attempting to manage as an outpatient. He is on Metformin and empagliflozin for his diabetes management. He is continued to have upper abdominal discomfort and dyspepsia. States that he starts to feel dizzy when his head moves and he has vomited sever al times. Denies chest pain. Denies shortness of breath. No sick contacts. Fully vaccinated against Covid. No fevers or chills. No rashes or skin changes. Review of Systems: Review of Systems: Constitutional: Denies fever or chills. [] Eyes: Denies change in visual acuity. [] HENT: Denies nasal congestion or sore throat. [] Respiratory: Denies cough or shortness of breath. [] Cardiovascular: Denies chest pain or edema. [] GI: Reports nausea, vomiting, upper abdominal discomfort.. [] : Denies dysuria. [] Musculoskeletal: Denies back pain or joint pain. [] Integument: Denies rash. [] Neurologic: Reports dizziness. Denies headache, focal weakness or sensory changes. [] Endocrine: Denies polyuria or polydipsia. [] Lymphatic: Denies swollen glands. [] Psychiatric: Denies depression or anxiety. [] Heart Score: C/O Chest Pain: No Risk Factors: Risk Factors: DM, Current or recent (<one month) smoker, HTN, HLP, family history of CAD, obesity. Risk Scores: Score 0 - 3: 2.5% MACE over next 6 weeks - Discharge Home Score 4 - 6: 20.3% MACE over next 6 weeks - Admit for Clinical Observation Score 7 - 10: 72.7% MACE over next 6 weeks - Early Invasive Strategies Current Medications: Current Medications Medications (Trade) Dose Ordered Sig/Krissy Start Time Stop Time Status Last Admin Dose Admin Ondansetron HCl (Zofran) 4 mg 1X ONCE 04/22/21 13:15 04/22/21 13:16 DC Ringer's Solution 1,000 ml @ 1,000 mls/hr 1X ONCE 04/22/21 13:15 04/22/21 14:14 Allergies: Allergies: Allergies Coded Allergies Type Severity Reaction Last Updated Verified No Known Drug Allergies 08/11/14 No Physical Exam: PE: Constitutional: Well developed, well nourished, no acute distress, non-toxic appearance. Slightly diaphoretic. [] HENT: Normocephalic, atraumatic, bilateral external ears normal, oropharynx [address], no oral exudates, nose normal. [] Eyes: PERRLA, EOMI, conjunctiva normal, no discharge. [] Neck: Normal range of motion, no tenderness, supple, no stridor. [] Cardiovascular:Heart rate regular rhythm, no murmur [] Lungs & Thorax: Bilateral breath sounds clear to auscultation [] Abdomen: No abdominal tenderness to palpation bowel sounds normal, soft, no tenderness, no masses, no pulsatile masses. [] Skin: Warm, no erythema, no rash. [] Extremities: No tenderness, no cyanosis, no clubbing, ROM intact, no edema. [] Neurologic: Alert and oriented X 3, normal motor function, normal sensory function, no focal deficits noted. [] Psychologic: Affect normal, judgement normal, mood normal. [] Current Patient Data: Vital Signs: Vital Signs Date Time Temp Pulse Resp B/P (MAP) Pulse Ox O2 Delivery O2 Flow Rate FiO2 04/22/21 13:03 97.3 79 12 160/98 (118) 97 Room Air 97.3 EKG: EKG: [] Radiology/Procedures: Radiology/Procedures: [] Impression: [facility] [address] [place], [place] [id number] IMAGING REPORT Signed PATIENT: TORI WILLARD ACCOUNT: [id number] : 1960 LOCATION: ER AGE: 60 SEX: M EXAM STATUS: REG ER ORD. PHYSICIAN: FERCHO WEBSTER MD REASON: upper abd pain, elevated LFTs and lipase PROCEDURE: CT ABD PELV W/ IV CONTRST ONLY Exam: CT of abdomen and pelvis with contrast INDICATION: Upper abdominal pain, elevated LFTs and lipase TECHNIQUE: Sequential axial images through the abdomen and pelvis obtained following the administration of 75 mL of Isovue-370 IV contrast. Sagittal and coronal reformatted images were reconstructed from the axial data and reviewed. Exposure: One or more of the following in the visualized dose reduction techniques were utilized for this examination: 1. Automated exposure control 2. Adjustment of the MA and/or KV according to patient size 3. Use of iterative of reconstructive technique Comparisons: 04/24/2014 FINDINGS: Heart size is normal. No pericardial effusion. Visualized lung bases are clear. No pleural effusion. Mild hepatic steatosis. Spleen, pancreas, and adrenals are unremarkable. Gallbladder is mildly distended. No perinephric inflammation or hydronephrosis. No renal or ureteral calculi are identified. Bladder is partially distended and not well evaluated. Prostate is not enlarged. Large and small bowel are unremarkable. Appendix is normal. No free intra- abdominal air or fluid. No obstruction. Abdominal aorta has normal course and caliber. Abdominal vasculature is patent. No enlarged intra-abdominal lymph nodes are identified. No suspicious osseous lesions or acute fractures. IMPRESSION: 1. Gallbladder is mildly distended. Correlate with symptomatology to determine the need for further evaluation with ultrasound. 2. Mild diffuse hepatic steatosis. Electronically signed by: Tila Toth MD (04/22/2021 4:40 PM) [facility] DICTATED and SIGNED BY: TILA TOTH MD DATE: 04/22/21 [id number] 0 Course & Med Decision Making: Course & Med Decision Making Pertinent Labs and Imaging studies reviewed. (See chart for details) Patient a 60-year-old male who presents with persistently high blood glucoses, lightheadedness, nausea/vomiting. On arrival is afebrile, hemodynamically stable. He is not hyperventilating, low suspicion for DKA. We will obtain labs, EKG. We will treat with IVF and Zofran. 1359 Trop negative. Blood glucose essentially normal today. venous pH normal. Bili elevated to 2.0 and mild transaminitis c/w previous levels attributed to fatty liver disease. Lipase elevated to 1900. Potentially mild pancreatitis. CT obtained and did not show any acute process. Mildly dilated gallbladder but he has no focal RUQ tenderness. He feels his pain and nausea is well controlled and he'd like to continue managing his condition on an outpatient basis. Will dc with zofran and recommended close PCP f/u. Emily Disclaimer: Emily Disclaimer: This electronic medical record was generated, in whole or in part, using a voice recognition dictation system. Departure Departure Impression: Primary Impression: Pancreatitis Referrals: CARLOZ ZACARIAS MD (PCP) Patient Instructions: Acute Pancreatitis Additional Instructions: Please follow-up with your primary care doctor on Thursday. Please eat a bland diet. You can use Zofran for nausea every 4-6 hours as needed. If you develop severe pain, shaking chills, fevers, shortness of breath, chest pain or other new/concerning symptoms please return to the emergency department for reevaluation. Scripts Ondansetron Hcl (ZOFRAN) 4 Mg Tablet 1 TAB PO PRN Q6-8HRS for nausea, #12 TAB Prov: FERCHO WEBSTER MD 04/22/21 FERCHO WEBSTER MD Apr 22, 2021 13:59
[2021-04-22 15:12] LABS: BASO # 0.1 x10^3/uL (0.0-0.2); BASO % 1 % (0-3); EOS # 0.1 x10^3/uL (0.0-0.7); EOS % 1 % (0-3); HEMATOCRIT 45.3 % (39.0-53.0); HEMOGLOBIN 15.6 g/dL (13.0-17.5); LYMPH # 2.2 x10^3/uL (1.0-4.8); LYMPH % 32 % (24-48); MEAN CORPUSCULAR HEMOGLOBIN 30 pg (25-35); MEAN CORPUSCULAR HGB CONC 35 g/dL (31-37); MEAN CORPUSCULAR VOLUME 88 fL (79-100); MONO # 0.5 x10^3/uL (0.0-1.1); MONO % 8 % (0-9); NEUT % 58 % (31-73); PLATELET COUNT 191 x10^3/uL (140-400); RED BLOOD COUNT 5.14 x10^6/uL (4.30-5.70); RED CELL DISTRIBUTION WIDTH 13.8 % (11.5-14.5); WHITE BLOOD COUNT 6.9 x10^3/uL (4.0-11.0)
[2021-04-22 15:12] LABS: ISTAT BE VENOUS 4 mmol/L (0-3); ISTAT HCO3 VEN 30 mmol/L (24-28); ISTAT PCO2 VEN 53 mmHg (41-51); ISTAT PH VEN 7.36 (7.32-7.42); ISTAT PO2 VEN 60 mmHg (20-40); ISTAT SAT O2 VEN 89 %; ISTAT TCO2 VEN 32 mmol/L (21-32)
[2021-04-22 15:27] LABS: CALCIUM 9.4 mg/dL (8.5-10.1); CREATININE 0.7 mg/dL (0.7-1.3); GFR 115.4; POTASSIUM 3.9 mmol/L (3.5-5.1)
[2021-04-22 15:34] LABS: ALBUMIN 3.5 g/dL (3.4-5.0); ALBUMIN/GLOBULIN RATIO 0.9 (1.0-1.7); TOTAL PROTEIN 7.6 g/dL (6.4-8.2)
[2021-04-22 15:49] VITALS: BP 117/74
[2021-04-22] MEDS ORDERED: IOHEXOL 300 MG/ML 100ML VIAL. IV ONE (16:30)
[2021-04-22] MEDS ORDERED: CONTRAST GIVEN. MC PRN (16:30)
--- NOTE | 2021-04-22 16:42 | RAD ---
Exam: CT of abdomen and pelvis with contrast INDICATION: Upper abdominal pain, elevated LFTs and lipase TECHNIQUE: Sequential axial images through the abdomen and pelvis obtained following the administrati on of 75 mL of Isovue-370 IV contrast. Sagittal and coronal reformatted images were reconstructed fro m the axial data and reviewed. Exposure: One or more of the following in the visualized dose reduction techniques were utilized for this examination: 1. Automated exposure control 2. Adjustment of the MA and/or KV according to patient size 3. Use of iterative of reconstructive technique Comparisons: 04/24/2014 FINDINGS: Heart size is normal. No pericardial effusion. Visualized lung bases are clear. No pleural effusion. Mild hepatic steatosis. Spleen, pancreas, and adrenals are unremarkable. Gallbladder is mildly disten ded. No perinephric inflammation or hydronephrosis. No renal or ureteral calculi are identified. Bladder is partially distended and not well evaluated. Prostate is not enlarged. Large and small bowel are unremarkable. Appendix is normal. No free intra-abdominal air or fluid. No obstruction. Abdominal aorta has normal course and caliber. Abdominal vasculature is patent. No enlarged intra-abdominal lymph nodes are identified. No suspicious osseous lesions or acute fractures. IMPRESSION: 1. Gallbladder is mildly distended. Correlate with symptomatology to determine the need for further evaluation with ultrasound. 2. Mild diffuse hepatic steatosis. Electronically signed by: Tila Claudio MD (04/22/2021 4:40 PM) [facility]
[2021-04-22] MEDS ORDERED: ONDA4TAB7 PO (17:05)
== END 2021-04-22 17:46 | disposition home or self-care (01) ==
LOC: ER 11:20
DX: K85.90 Acute pancreatitis without necrosis or infection, unspecified (principal); E11.65 Type 2 diabetes mellitus with hyperglycemia; I10 Essential (primary) hypertension; K21.9 Gastro-esophageal reflux disease without esophagitis
CPT/HCPCS: 36415; 74177; 80053; 82803; 83690; 84484; 85025; 96361; 96374; 99285; J2405; J7120; Q9967